=== PATIENT | male | born 1985 | race African-American/Black ===

== ENCOUNTER 2020-02-23 23:27 | Emergency (ER) | payer SELFPAY ==
[~2020-02-23] VITALS: Ht 185.4 cm; Wt 97.5 kg
[2020-02-23 23:35] VITALS: Ht 185.4 cm; Wt 97.5 kg
[2020-02-24 02:36] VITALS: BP 118/86
== END 2020-02-24 02:36 | disposition home or self-care (01) ==
LOC: ED 23:27
DX: U07.1 COVID-19 (principal)
CPT/HCPCS: J1885; U0003-CS